=== PATIENT | male | born 1985 | race Caucasian/White ===

== ENCOUNTER 2017-09-09 20:03 | Emergency (ER) | payer MEDICAID ==
[~2017-09-09] VITALS: Ht 154.9 cm; Wt 65.8 kg
--- NOTE | 2017-09-09 20:03 | NUR ---
Patient to ER bed 5 to gown for evaluation. Side rails up. Report given to SHANNON RIGGS.
--- NOTE | 2017-09-09 20:03 | NUR ---
Seizure precautions in place. Seizure pads applied to gurney. Side rails up.
--- NOTE | 2017-09-09 20:05 | NUR ---
Patient brought to ED via [facility] with c/o seizure. EMS reports 2 minute witnessed seizure activity while in seated position. Denies fall or trauma. Respirations even and unlabored. Patient appears postictal at this time. Hx of mental retardation. -N/V/D. Patient respontds to questions appropriately but lethargic. Afebrile. Hx of seizure. Staff member provided from [facility] and care at bedside with patient. Will continue to monitor.
[2017-09-09 20:06] VITALS: BP_SYST 137
--- NOTE | 2017-09-09 20:11 | NUR ---
ER at bedside examining patient.
--- NOTE | 2017-09-09 20:19 | NUR ---
Patient presents with 1 minute of witnessed seizure activity. Seizure precautions in place. Patient placed on O2 via nasal cannula. No evidence of respiratory distress. ED MD Carlson made aware. Will continue to monitor.
--- NOTE | 2017-09-09 20:34 | NUR ---
#20 gauge angiocath placed to RAC. Use of asceptic technique. Opsite placed over site. Blood return noted. Blood for lab drawn from site. Flushed with 10 cc of normal saline. No evidence of infiltration noted. Patient tolerated well.
[2017-09-09 20:54] LABS: BASOPHILS # (AUTO) 0.1 K/uL (0.0-0.2); EOSINOPHILS # (AUTO) 0.1 K/uL (0.0-0.4); EOSINOPHILS % (AUTO) 0.8 % (0.0-4.0); HEMOGLOBIN 15.5 g/dL (14.0-18.0); MEAN CORPUSCULAR HEMOGLOBIN 30 pg (27-31); MONOCYTES # (AUTO) 0.6 K/uL (0.0-1.0)
[2017-09-09 20:57] LABS: BASOPHILS % (AUTO) 1.6 % (0.0-2.0); HEMATOCRIT 45.2 % (36-54); LYMPHOCYTES # (AUTO) 3.7 K/uL (1.0-5.5); LYMPHOCYTES % (AUTO) 44.3 % (20.5-51.5); MEAN CORPUSCULAR HGB CONC 34 % (32-36); MEAN CORPUSCULAR VOLUME 88 fL (79.0-98.0); NEUTROPHILS # (AUTO) 3.8 K/uL (1.8-7.7); NEUTROPHILS % (AUTO) 46.3 % (40.0-70.0); RED BLOOD CELL COUNT(AUTO) 5.12 MIL/uL (4.2-6.2); RED CELL DISTRIBUTION WIDTH 11.8 % (9.0-15.0); WHITE BLOOD COUNT (AUTO) 8.3 K/uL (4.8-10.8)
[2017-09-09 21:06] LABS: ANION GAP 7 (5-15); CALCIUM 8.9 mg/dL (8.4-11.0); CHLORIDE 103 mmol/L (98-107); CREATININE 0.89 mg/dL (0.55-1.30); GLUCOSE 100 mg/dL (70-99); POTASSIUM 3.7 mmol/L (3.5-5.1); PROTHROMBIN TIME 9.9 SECS (9.5-12.5); SODIUM SERUM 142 mmol/L (136-145); UREA NITROGEN, BLOOD 14 mg/dL (8-21)
[2017-09-09 21:08] LABS: GFR AFRICAN AMERICAN 127 mL/min (>90)
[2017-09-09 21:16] LABS: PLATELET COUNT (AUTO) 201 K/uL (130-430)
[2017-09-09 21:22] LABS: ALANINE AMINOTRANSFERASE 80 U/L (12-78); ALBUMIN 3.6 g/dL (3.4-4.8); ASPARTATE AMINOTRANSFERASE 50 U/L (10-37); TOTAL BILIRUBIN 0.3 mg/dL (0.0-1.0)
[2017-09-09 21:23] LABS: ACETAMINOPHEN < 1 ug/mL (1-30); ALCOHOL, BLOOD < 3 mg/dL (<10)
[2017-09-09 21:58] LABS: BILIRUBIN,URINE NEGATIVE (NEGATIVE); BLOOD, URINE NEGATIVE (NEGATIVE); CLARITY/URINE HAZY (CLEAR); COLOR,URINE YELLOW (YELLOW); GLUCOSE,URINE NEGATIVE (NEGATIVE); KETONES,URINE TRACE (NEGATIVE); LEUKOCYTE ESTERASE ,URINE NEGATIVE (NEGATIVE); NITRITE, URINE NEGATIVE (NEGATIVE); PROTEIN URINE NEGATIVE (NEGATIVE); UROBILINOGEN,URINE 0.2 (0.2-1.0)
[2017-09-09] MEDS ORDERED: levETIRAcetam 500 MG TABLET PO ONE (22:00)
[2017-09-09] MEDS ORDERED: LORazepam 2 MG/ML VIAL (FOR ER USE) IVP ONE (22:00)
[2017-09-09] MEDS ORDERED: levETIRAcetam 1,000 MG IV BAG 100 ML IV ONE (22:00)
[2017-09-09] MEDS ORDERED: LORazepam 2 MG/ML VIAL (FOR ER USE) ONE (22:05)
[2017-09-09 22:25] LABS: BARBITURATE, URINE NEGATIVE (NEG <=200); BENZODIAZEPINE, URINE NEGATIVE (NEG <=150); CANNABINOID, URINE NEGATIVE (NEG <=50); COCAINE, URINE NEGATIVE (NEG <=150); METHAMPHETAMINES SCREEN,URINE NEGATIVE (NEG <=500); OPIATE, URINE NEGATIVE (NEG <=100); PHENCYCLIDINE SCREEN,URINE NEGATIVE (NEG <=25); UR TRICYCLIC ANTIDEPRESSANTS NEGATIVE (NEG <=300); URINE AMPHETAMINE NEGATIVE (NEG <=500); URINE METHADONE NEGATIVE (NEG <=200); URINE OXYCODONE SCREEN NEGATIVE (NEG <=100); URINE PROPOXYPHENE SCREEN NEGATIVE (NEG <=300)
--- NOTE | 2017-09-09 22:44 | NUR ---
ED MD Carlson at bedside reassessing patient.
[2017-09-09 23:07] VITALS: BP_SYST 131
--- NOTE | 2017-09-09 23:07 | NUR ---
Patient given written and verbal discharge instructions and verbalizes understanding. ER MD discussed with patient the results and treatment provided. Patient in stable condition. ID arm band removed. IV catheter removed intact and dressing applied, no active bleeding. No Rx given. Patient educated on pain management and to follow up with PMD. Pain Scale 0/10 at this time. Opportunity for questions provided and answered.
== END 2017-09-09 23:07 | disposition home or self-care (01) ==
LOC: SED 20:03
DX: R56.9 Unspecified convulsions (principal); R03.0 Elevated blood-pressure reading, without diagnosis of hypertension; Z88.1 Allergy status to other antibiotic agents; R79.1 Abnormal coagulation profile
CPT/HCPCS: 36415; 70450; 71045; 80053; 80307; 81003; 82550; 84484; 85025; 85610; 85730; 93005; 96365; 99285; G0480; G0481; G0482; J1953; J2060

== ENCOUNTER 2018-02-20 11:46 | Inpatient (IN) | payer MEDICAID ==
[~2018-02-20] VITALS: Ht 167.6 cm; Wt 103.4 kg
[2018-02-20 11:48] VITALS: BP_SYST 127
[2018-02-20] MEDS ORDERED: NACL 0.9% 1,000 ML IV ONE (12:00)
[2018-02-20] MEDS ORDERED: FLUO60SO3 TP (12:11)
[2018-02-20] MEDS ORDERED: GUAI240S2 PO (12:11)
[2018-02-20] MEDS ORDERED: MULT-1117 PO (12:11)
[2018-02-20] MEDS ORDERED: CALC-939 PO (12:11)
[2018-02-20] MEDS ORDERED: ACET-73 PO (12:11)
[2018-02-20] MEDS ORDERED: [UNRECOGNIZED DRUG - CODE] PO (12:11)
[2018-02-20] MEDS ORDERED: DIVA500T7 PO (12:11)
[2018-02-20] MEDS ORDERED: LOVA20TA2 PO (12:11)
[2018-02-20] MEDS ORDERED: PARO-41 PO (12:11)
[2018-02-20] MEDS ORDERED: LORazepam 2 MG/ML VIAL (FOR ER USE) ONE ×2 (12:12→13:21)
[2018-02-20] MEDS ORDERED: LORazepam 2 MG/ML VIAL (FOR ER USE) IVP ONE ×2 (12:15→13:15)
[2018-02-20 12:32] LABS: BASOPHILS # (AUTO) 0.1 K/uL (0.0-0.2); BASOPHILS % (AUTO) 0.7 % (0.0-2.0); EOSINOPHILS # (AUTO) 0.6 K/uL (0.0-0.4); EOSINOPHILS % (AUTO) 8.2 % (0.0-4.0); HEMATOCRIT 42.8 % (36-54); HEMOGLOBIN 14.3 g/dL (14.0-18.0); LYMPHOCYTES # (AUTO) 3.1 K/uL (1.0-5.5); LYMPHOCYTES % (AUTO) 41.7 % (20.5-51.5); MEAN CORPUSCULAR HEMOGLOBIN 30 pg (27-31); MEAN CORPUSCULAR HGB CONC 33 % (32-36); MEAN CORPUSCULAR VOLUME 89 fL (79.0-98.0); MONOCYTES # (AUTO) 0.6 K/uL (0.0-1.0); MONOCYTES % (AUTO) 8.5 % (1.7-9.3); NEUTROPHILS # (AUTO) 3.1 K/uL (1.8-7.7); NEUTROPHILS % (AUTO) 40.9 % (40.0-70.0); PLATELET COUNT (AUTO) 196 K/uL (130-430); RED CELL DISTRIBUTION WIDTH 11.8 % (9.0-15.0); WHITE BLOOD COUNT (AUTO) 7.5 K/uL (4.8-10.8)
[2018-02-20 12:35] LABS: BILIRUBIN,URINE NEGATIVE (NEGATIVE); BLOOD, URINE NEGATIVE (NEGATIVE); CLARITY/URINE CLEAR (CLEAR); COLOR,URINE YELLOW (YELLOW); GLUCOSE,URINE NEGATIVE (NEGATIVE); KETONES,URINE NEGATIVE (NEGATIVE); LEUKOCYTE ESTERASE ,URINE NEGATIVE (NEGATIVE); NITRITE, URINE NEGATIVE (NEGATIVE); PROTEIN URINE NEGATIVE (NEGATIVE); UROBILINOGEN,URINE 0.2 (0.2-1.0)
[2018-02-20 12:50] LABS: CALCIUM 9.5 mg/dL (8.4-11.0); CREATININE 0.93 mg/dL (0.55-1.30); POTASSIUM 3.4 mmol/L (3.5-5.1)
[2018-02-20 13:14] LABS: BARBITURATE, URINE NEGATIVE (NEG <=200); BENZODIAZEPINE, URINE NEGATIVE (NEG <=150); CANNABINOID, URINE NEGATIVE (NEG <=50); COCAINE, URINE NEGATIVE (NEG <=150); METHAMPHETAMINES SCREEN,URINE NEGATIVE (NEG <=500); OPIATE, URINE NEGATIVE (NEG <=100); PHENCYCLIDINE SCREEN,URINE NEGATIVE (NEG <=25); UR TRICYCLIC ANTIDEPRESSANTS NEGATIVE (NEG <=300); URINE AMPHETAMINE NEGATIVE (NEG <=500); URINE METHADONE NEGATIVE (NEG <=200); URINE OXYCODONE SCREEN NEGATIVE (NEG <=100); URINE PROPOXYPHENE SCREEN NEGATIVE (NEG <=300)
[2018-02-20] MEDS ORDERED: ACETAMINOPHEN 500 MG TABLET PO PRN (14:45)
[2018-02-20] MEDS ORDERED: POTASSIUM CHLORIDE 10 MEQ TAB.PRT.SR PO ONE (14:45)
[2018-02-20] MEDS ORDERED: FAMOTIDINE 20 MG TABLET PO ONE (14:45)
[2018-02-20 14:46] VITALS: BP_SYST 123
[2018-02-20] MEDS ORDERED: LORazepam 2 MG/ML VIAL IVP PRN (15:00)
[2018-02-20] MEDS: SIMVASTATIN 10 MG TABLET PO SCH (17:30)
[2018-02-20 19:55] VITALS: BP_SYST 118
[2018-02-20] MEDS: DIVALPROEX SODIUM 500 MG TABLET( DEPAKOTE) PO SCH (20:25)
[2018-02-21 00:57] VITALS: BP_SYST 107
[2018-02-21] MEDS: FAMOTIDINE 20 MG TABLET PO SCH (09:42)
[2018-02-21] MEDS: PARoxetine HCL 20 MG TABLET PO SCH (09:42)
[2018-02-21] MEDS: DIVALPROEX SODIUM 500 MG TABLET( DEPAKOTE) PO SCH ×2 (09:43→20:14)
[2018-02-21 11:30] VITALS: BP_SYST 118
[2018-02-21] MEDS ORDERED: DIPHENHYDRAMINE HCL 50 MG CAPSULE PO ONE (12:00)
[2018-02-21 13:59] LABS: BASOPHILS # (AUTO) 0.1 K/uL (0.0-0.2); BASOPHILS % (AUTO) 1.5 % (0.0-2.0); EOSINOPHILS # (AUTO) 0.8 K/uL (0.0-0.4); EOSINOPHILS % (AUTO) 8.6 % (0.0-4.0); HEMATOCRIT 45.8 % (36-54); HEMOGLOBIN 14.6 g/dL (14.0-18.0); LYMPHOCYTES # (AUTO) 2.7 K/uL (1.0-5.5); LYMPHOCYTES % (AUTO) 29.6 % (20.5-51.5); MEAN CORPUSCULAR HEMOGLOBIN 29 pg (27-31); MEAN CORPUSCULAR HGB CONC 32 % (32-36); MEAN CORPUSCULAR VOLUME 91 fL (79.0-98.0); MONOCYTES # (AUTO) 0.8 K/uL (0.0-1.0); MONOCYTES % (AUTO) 8.4 % (1.7-9.3); NEUTROPHILS # (AUTO) 4.6 K/uL (1.8-7.7); NEUTROPHILS % (AUTO) 51.9 % (40.0-70.0); PLATELET COUNT (AUTO) 210 K/uL (130-430); RED BLOOD CELL COUNT(AUTO) 5.03 MIL/uL (4.2-6.2); RED CELL DISTRIBUTION WIDTH 11.7 % (9.0-15.0)
[2018-02-21 14:19] LABS: CALCIUM 8.7 mg/dL (8.4-11.0); CREATININE 0.91 mg/dL (0.55-1.30)
[2018-02-21 14:57] VITALS: BP_SYST 116
[2018-02-21] MEDS ORDERED: DIPH25CA83 PO (17:16)
[2018-02-21] MEDS ORDERED: HYDC2.5% TP (17:18)
[2018-02-21 17:29] VITALS: BP_SYST 116
[2018-02-21] MEDS: HYDROCORTISONE 2.5%, 30 GM TOPICAL CREAM TP SCH ×2 (18:48→20:14)
[2018-02-21] MEDS: SIMVASTATIN 10 MG TABLET PO SCH (18:48)
[2018-02-21 19:55] VITALS: BP_SYST 109
[2018-02-22 00:39] VITALS: BP_SYST 129
[2018-02-22 08:00] VITALS: BP_SYST 114
[2018-02-22] MEDS: PARoxetine HCL 20 MG TABLET PO SCH (08:08)
[2018-02-22] MEDS: DIVALPROEX SODIUM 500 MG TABLET( DEPAKOTE) PO SCH (08:08)
[2018-02-22] MEDS: HYDROCORTISONE 2.5%, 30 GM TOPICAL CREAM TP SCH (08:14)
[2018-02-22] MEDS: FAMOTIDINE 20 MG TABLET PO SCH (08:16)
[2018-02-22 09:00] VITALS: BP_SYST 114
[2018-02-22 09:38] VITALS: BP_SYST 114
== END 2018-02-22 10:00 | disposition home or self-care (01) | DRG 53 ==
LOC: SED 11:46 → STU 13:48
PROVIDERS: ADMIT Internal Medicine; ATTEND Internal Medicine
DX: G40.409 Other generalized epilepsy and epileptic syndromes, not intractable, without status epilepticus (principal); G80.9 Cerebral palsy, unspecified; E78.5 Hyperlipidemia, unspecified; E87.6 Hypokalemia; F32.9 Major depressive disorder, single episode, unspecified; F79 Unspecified intellectual disabilities; R21 Rash and other nonspecific skin eruption; Z88.1 Allergy status to other antibiotic agents; Z79.899 Other long term (current) drug therapy
CPT/HCPCS: 36415; 70450-TC; 80048; 80164-TC; 80307; 81003; 83735-TC; 84443-TC; 85025; 93005; 96361; 96374; 96375; 99285; J2060; Q0163